=== PATIENT | female | born 1980 | race Caucasian/White ===

== ENCOUNTER 2016-11-25 10:02 | Emergency (ER) | payer SELFPAY ==
[~2016-11-25] VITALS: Ht 160 cm; Wt 108.9 kg
[~2016-11-25 10:02] MED LIST: BACTRIM DS TABL1 TA2 PO; NO MEDICATIONS; PYRIDIUM PO; VICODIN 5-3001 EACH PO
[2016-11-25 10:40] LABS: URINE SOURCE CLEAN CATCH
[2016-11-25 10:59] LABS: URINE APPEARANCE CLOUDY; URINE BILIRUBIN NEG (NEG); URINE BLOOD 3+ (NEG); URINE COLOR YELLOW; URINE GLUCOSE NEG (NORM); URINE KETONE NEG (NEG); URINE LEUKOCYTE ESTERASE 1+ (NEG); URINE NITRATE POS (NEG); URINE PROTEIN 2+ (NEG); URINE SPECIFIC GRAVITY >=1.030 (1.003-1.035); URINE UROBILINOGEN 0.2 MG/DL (NORM)
[2016-11-25 11:00] LABS: MICRO INDICATED? YES; URINE RBC 200-300 /[HPF] (0-2)
[2016-11-25 11:01] LABS: CULTURE INDICATED? YES; URINE BACTERIA 2+ (NEG); URINE SQUAMOUS EPITHELIAL CELL OCCAS /[HPF]; URINE WBC 200-300 /[HPF] (0-5)
== END 2016-11-25 11:20 | disposition home or self-care (01) ==
LOC: SED 10:02
PROVIDERS: Physician Assistant
DX: N39.0 Urinary tract infection, site not specified (principal)
CPT/HCPCS: 81003; 84703; 87086; 87088; 87186; 99283